=== PATIENT | female | born 1955 ===

== ENCOUNTER → 2023-07-22 | Outpatient (CLI) | payer MEDICARE, MEDICAID | END | disposition home or self-care (01) | LOC: Rad HDHVI 15:40 | PROVIDERS: ATTEND Internal Medicine Cardiovascular Disease | DX: I65.23 Occlusion and stenosis of bilateral carotid arteries (principal); I10 Essential (primary) hypertension | CPT/HCPCS: 93880 ==

== ENCOUNTER → 2024-11-25 | Outpatient (CLI) | payer MEDICARE, MEDICAID | END | disposition home or self-care (01) | LOC: Rad HDHVI 13:38 | PROVIDERS: ATTEND Internal Medicine Cardiovascular Disease | DX: R07.89 Other chest pain (principal); G45.9 Transient cerebral ischemic attack, unspecified | CPT/HCPCS: 93306 ==

== ENCOUNTER → 2024-11-30 | Outpatient (CLI) | payer MEDICARE, MEDICAID | END | disposition home or self-care (01) | LOC: Rad HDHVI 09:59 | PROVIDERS: ATTEND Internal Medicine Cardiovascular Disease | DX: I10 Essential (primary) hypertension (principal); G45.9 Transient cerebral ischemic attack, unspecified | CPT/HCPCS: 93880 ==

== ENCOUNTER → 2025-03-15 | Outpatient (CLI) | payer MEDICARE, MEDICAID ==
[~2025-03-15] VITALS: Ht 152.4 cm; Wt 62.1 kg
--- NOTE | 2025-03-28 13:04 | DVHSR ---
APPROVED REPORT Exam: Nuclear Stress Test Indication: Chest pain Ht: 5 ft 0 in Wt: 137 lbs BSA: 1.59 m2 HR: 57 bpm BP: 110/58 mmHg BMI: 26.75 Rhythm: Bradycardia Medical History Medical History: HTN, Mixed hyperlipidemia, Smoking, Chest pain, CHF, SOB Medications: Chlorthalidone, Buspirone, Famotidine, Amlodipine, Gabapentin, Vit D3, Losartan Allergies: No known drug allergies Cardiac Risk Factors: Family Hx of CAD Stress Test Details Stress Test: Exercise stress testing was performed using a Charan protocol. HR Resting HR: 57 bpmMax Heart Rate (APMHR): 150.030029 bpm Max HR Achieved: 137 bpmTarget HR (85% APMHR): 127.259196 bpm % of APMHR: 91.33 Recovery HR: 65 bpm HR response to stress: Normal HR response to stress BP Resting BP: 110/58 mmHg Max BP: 190/92 mmHg Recovery BP: 122/70 mmHg BP response to stress: Exaggerated response ECG Resting ECG: Sinus Bradycardia Stress ECG: Sinus Tachycardia Recovery ECG: Sinus Rhythm Clinical Reason for Termination: Fatigue Stress Symptoms: Mild dizziness Exercise duration: 4 min 14 sec Exercise capacity: 6.1 METs Dizziness subsided during recovery. Stress ECG Conclusion NON ISCHEMIC ECG EF >55% NON ISCHEMIC CARDIOLITE PERFUSION SCAN LESS THAN 10% LIKELIHODD FOR STRESS INDUCED ISCHEMIA NM EXAM: Myocardial Perfusion REST/STRESS Imaging Protocol: Rest Tc-99m/Stress Tc-99m 1 day Resting Data Rest SPECT myocardial perfusion imaging was performed in supine position 30 minutes following the int ravenous injection of 10.88 mCi of Tc-99m Sestamibi. Time of rest injection: 1414 Date: 03/15/2025 Time of rest imagin Date: 03/15/2025 Administration Route: IV Administration Site: Right AC Exercise Stress At peak stress, the patient was injected intravenously with 33 mCi of Tc-99m Sestamibi. Time of stress injection: 1507 Date: 03/15/2025 Time of stress imagin Date: 03/15/2025 Administration Route: IV Administration Site: Right AC Heart Rate at time of stress injection: 129 bpm. Patient continued to exercise for 1 minute(s). Gated Stress SPECT was performed 15 minutes after stress injection. The images were gated to evaluate regional wall motion and calculate left ventricular ejection fracti on. Comments Cardiolite injection at 3 minutes, 36 seconds into test. Study Data Post stress, the left ventricular ejection was >55%.. Nuclear Conclusion NON ISCHEMIC ECG EF >55% NON ISCHEMIC CARDIOLITE PERFUSION SCAN LESS THAN 10% LIKELIHODD FOR STRESS INDUCED ISCHEMIA
== END | disposition home or self-care (01) ==
LOC: Rad HDHVI 13:59
PROVIDERS: ATTEND Internal Medicine Cardiovascular Disease
DX: R00.0 Tachycardia, unspecified (principal); R00.1 Bradycardia, unspecified; I11.0 Hypertensive heart disease with heart failure; I50.9 Heart failure, unspecified; G45.9 Transient cerebral ischemic attack, unspecified; R07.89 Other chest pain; I80.9 Phlebitis and thrombophlebitis of unspecified site; R06.02 Shortness of breath; E78.2 Mixed hyperlipidemia; R53.83 Other fatigue; F17.210 Nicotine dependence, cigarettes, uncomplicated; Z82.49 Family history of ischemic heart disease and other diseases of the circulatory system
CPT/HCPCS: 78452; 93017; A9500; 96374